=== PATIENT | male | born 1935 | race Caucasian/White ===

== ENCOUNTER → 2020-05-22 | Outpatient (CLI) | payer MEDICARE ==
--- NOTE | 2020-05-22 23:54 | CONS ---
CONSULTATION DATE OF SERVICE: 05/22/2020. An 84-year-old gentleman who has [facility] for obstructive sleep apnea-hypopnea syndrome. HISTORY OF PRESENT ILLNESS/SLEEP-WAKE EVALUATION: The patient has been diagnosed with sleep apnea about 40 years ago. Since that time, he is on treatment with CPAP but presently while using his CPAP, he has had multiple awakenings from sleep with nocturia, heartburn, grinding teeth. The last sleep study done about 5 years ago in [place]. Presently, patient's sleep schedule from 11:30-12 midnight until 8 a.m. No problems with falling asleep. No TV in bedroom. Usually sleeps on the side position. In the morning he wakes up tired, has difficulties to pay attention, falling asleep during the day, worry about his sleep has problem. Memory, concentration, irritability, sexual dysfunction. Oberlin Sleepiness Scale significantly increased to 13. I have checked patient CPAP unit, it is automatic machine with range of the pressure 8- 12. The patient demonstrated good compliance using it every night more than 4 hours with average usage 6.6 hours per night. No leak at all, 0 L/minute. Apnea-hypopnea index reading for the last night, 10.9, for the last month average 7.2. PAST MEDICAL HISTORY: Coronary artery disease, status post several stent insertions procedure as well as acid reflux, depression, gout. MEDICATIONS: Pantoprazole, aspirin, isosorbide, donepezil, memantine, , atorvastatin, finasteride, gabapentin, oxybutynin, phenytoin, temazepam, , trazodone, latanoprost. SOCIAL HISTORY: Positive for smoking in the past. Quit smoking about 30 years ago. Smoked about 1 pack a day for 30 years. Alcohol consumption occasional. FAMILY HISTORY: Cancer by his brother. REVIEW OF SYSTEMS: Awakenings from sleep, tiredness and sleepiness during the day. PHYSICAL EXAM: gentleman without distress. BP 130/63, HR 68, RR 16, height 5, 11, weight 178, body mass index 24.8, temperature 98.1, oxygen saturation at room air 96%. OROPHARYNX: Moderately low soft palate. NECK: 14-1/2 inches in circumference. LUNGS: Clear to percussion and to auscultation. Good air exchange. No wheezing or rhonchi. HEART: S1, S2 regular. No murmurs, gallops, or rubs. ABDOMEN: Soft and nontender. Bowel sounds are present. No organomegaly appreciated. EXTREMITIES: No clubbing or cyanosis. [employer]: Awake, alert, and oriented X3. Cranial nerves 2 to 7 intact. There is no fasciculation or atrophy. noted. No focal deficits observed. IMPRESSION: 1. Obstructive sleep apnea-hypopnea syndrome for about 40 years. Patient is using CPAP therapy, but the apnea-hypopnea index reading from the machine increased. Patient awakenings from sleepiness by Oberlin Sleepiness Scale. 2. Coronary artery disease, status post stent insertions. 3. History of seizures. 4. Acid reflux. 5. History of gout. 6. History of depression. PLAN: 1. Polysomnography for evaluation of patient's breathing during sleep. 2. CPAP/BiPAP titration if sleep study confirms obstructive sleep apnea-hypopnea syndrome. 3. Preferable position during sleep on the side. 4. No driving if patient feels any sleepiness. 5. I will see patient for follow up visit to explain results of testing and following plan. Thank you very much for referring this patient for consultation. Sincerely, Ángel Ordoñez MD, PhD, FAASM Diplomat of [employer] Event Designer of [facility] [place] [facility] [place] / E[place]KA: [id number] /
== END | disposition home or self-care (01) ==
LOC: SLEEP 11:03
PROVIDERS: ATTEND Internal Medicine
DX: G47.33 Obstructive sleep apnea (adult) (pediatric) (principal); I25.10 Atherosclerotic heart disease of native coronary artery without angina pectoris; K21.9 Gastro-esophageal reflux disease without esophagitis; Z95.5 Presence of coronary angioplasty implant and graft; Z86.69 Personal history of other diseases of the nervous system and sense organs; Z87.39 Personal history of other diseases of the musculoskeletal system and connective tissue; Z86.59 Personal history of other mental and behavioral disorders; Z99.89 Dependence on other enabling machines and devices; Z87.891 Personal history of nicotine dependence; Z79.899 Other long term (current) drug therapy; Z79.82 Long term (current) use of aspirin
CPT/HCPCS: 99211

== ENCOUNTER → 2020-08-26 | Outpatient (CLI) | payer MEDICARE ==
[2020-08-26 13:06] LABS: Basophils # (A) 0.1 k/uL (0-0.2); Basophils % (A) 1 %; Eosinophils # (A) 0.1 k/uL (0-0.7); Eosinophils % (A) 2 %; HCT 39.2 % (39.0-53.0); HGB 12.6 gm/dL (13.0-17.5); Lymphocytes # (A) 0.9 k/uL (1.0-4.8); Lymphocytes % (A) 17 %; MCH 31.8 pg (25.0-35.0); MCHC 32.1 g/dL (31.0-37.0); MCV 98.9 fL (80.0-100.0); Mean Platelet Volume 7.3; Monocytes # (A) 0.4 k/uL (0-1.0); Monocytes % (A) 7 %; Neutrophils # (A) 3.7 k/uL (1.3-7.7); Neutrophils % (A) 72 %; Platelet Count 197 k/uL (150-450); RBC 3.96 m/uL (4.30-5.90); RDW 13.2 % (11.5-15.5); WBC 5.2 k/uL (3.8-10.6)
[2020-08-26 13:23] LABS: Appearance,Urine Clear (Clear); Bilirubin,Urine Negative (Negative); Blood,Urine Negative (Negative); Color,Urine Yellow; Glucose,Urine (UA) Negative (Negative); Ketones,Urine Negative (Negative); Leukocyte Esterase,Urine Negative (Negative); Nitrite,Urine Negative (Negative); PH, Urine 6.5 (5.0-8.0); Protein,Urine Negative (Negative); Specific Gravity,Urine 1.016 (1.001-1.035); Urobilinogen,Urine <2.0 mg/dL (<2.0)
[2020-08-26 22:43] LABS: African American GFR (CKD) 101.1 (60.0-200.0); Albumin/Globulin Ratio 1.54 (1.60-3.17); BUN/Creat Ratio 24.29 Ratio (12.00-20.00); Calcium 9.2 mg/dL (8.7-10.3); Chol/HDL Ratio 1.95; Ferritin 458.1 ng/mL (22.0-322.0); Globulin 2.6 g/dL (1.6-3.3); LDL Cholesterol,Calculated 62.4 mg/dL (0.0-131.0); Non-African American GFR(CKD) 87.3 (60.0-200.0); Potassium 4.2 mmol/L (3.5-5.5); Total Bilirubin 0.4 mg/dL (0.2-1.2); Total Protein 6.6 g/dL (6.2-8.2); VLDL Calculation 10.6 mg/dL (5.00-40.00)
== END | disposition home or self-care (01) ==
LOC: LABWHC1 11:03
PROVIDERS: ATTEND Psychiatry & Neurology Neurology
DX: Z00.00 Encounter for general adult medical examination without abnormal findings (principal); D64.9 Anemia, unspecified; G25.81 Restless legs syndrome; E78.2 Mixed hyperlipidemia; N40.0 Benign prostatic hyperplasia without lower urinary tract symptoms
CPT/HCPCS: 36415; 80053; 80061; 81003; 82728; 83540; 84443; 85025

== ENCOUNTER → 2021-02-25 | Outpatient (CLI) | payer MEDICARE ==
[2021-02-25 21:04] LABS: Hemoglobin A1C 5.7 % (4.0-6.0)
[2021-02-26 00:43] LABS: T4, Free (Free Thyroxine) 0.9 ng/dL (0.80-1.80)
[2021-02-27 07:25] LABS: Protein, Total 6.2 g/dL (6.2-8.2)
== END | disposition home or self-care (01) ==
LOC: LABWHC1 12:55
PROVIDERS: ATTEND Psychiatry & Neurology Neurology
DX: G62.9 Polyneuropathy, unspecified (principal); R73.9 Hyperglycemia, unspecified
CPT/HCPCS: 36415; 82550; 82607; 82747; 83036; 84165; 84439; 84443; 85652; 86038; 86039; 86618

== ENCOUNTER → 2021-07-31 | Outpatient (CLI) | payer MEDICARE | END | disposition home or self-care (01) | LOC: LABWHC1 14:25 | PROVIDERS: ATTEND Psychiatry & Neurology Neurology | DX: G40.909 Epilepsy, unspecified, not intractable, without status epilepticus (principal) | CPT/HCPCS: 36415; 80185 ==

== ENCOUNTER → 2022-05-12 | Outpatient (CLI) | payer MEDICARE ==
[2022-05-12 17:34] LABS: African American GFR (CKD) >90 (>60 ml/min/1.73 sqM); Blood Urea Nitrogen 21 mg/dL (9-20); Non-African American GFR(CKD) 84 (>60 ml/min/1.73 sqM)
--- NOTE | 2022-05-12 19:33 | CT ---
EXAMINATION TYPE: CT abdomen pelvis w con DATE OF EXAM: 05/12/2022 COMPARISON: None available HISTORY: Weight loss, 15-[address] DLP: 643.90 mGycm Automated exposure control for dose reduction was used. TECHNIQUE: Helical acquisition of images was performed from the lung bases through the pelvis. CONTRAST: Performed with Oral Contrast and with IV Contrast, patient injected with 100 mL of Isovue 300. FINDINGS: LUNG BASES: Mild peripheral pulmonary reticulations. Cardiomegaly. LIVER/GB: No significant abnormality is appreciated. PANCREAS: No significant abnormality is seen. SPLEEN: No significant abnormality is seen. ADRENALS: No significant abnormality is seen. KIDNEYS: Multiple variable sized bilateral renal cysts without suspicious features. 4 mm nonobstructi ng stone at the lower pole of the left kidney. FREE AIR: No free air is visualized. RETROPERITONEAL ADENOPATHY: None visualized REPRODUCTIVE ORGANS: Bulky prostate with prostatic concretion. URINARY BLADDER: Not completely distended with slightly thickened wall. 5 mm calcification/stone is seen at the left posterolateral aspect of the urinary bladder adjacent to the left ureterovesical armando ction without evidence of hydroureter. Recommend correlation with urinalysis results. Further cystosc opy can be considered. PELVIC ADENOPATHY: No pathologically enlarged pelvic lymph nodes. OSSEOUS STRUCTURES: Osteopenia. Degenerative changes of the lumbar spine. BOWEL: Grossly unremarkable stomach and duodenum. Sharp angulation of the terminal ileum, possibly d ue to adhesions at that location. No evidence of small bowel obstruction. Fecal loading of the rectum and most of the colon. No gross colonic mass however a small lesion cannot be excluded. Recommend co rrelation with colonoscopy results. OTHER: Arterial atherosclerotic calcification with stenosis of the origins of the celiac trunk and bonilla perior mesenteric arteries. Fat-containing umbilical hernia. Suspected small bilateral fat-containing inguinal hernias. IMPRESSION: No definite suspicious lesion or lymphadenopathy seen in the abdomen or the pelvis. Multiple incident al findings and recommendations as described above.
== END | disposition home or self-care (01) ==
LOC: RADCTMAIN 15:24
PROVIDERS: ATTEND Internal Medicine
DX: R63.4 Abnormal weight loss (principal)
CPT/HCPCS: 82565; 84520; 74177; 36415; Q9967